=== PATIENT | female | born 1940 | race Caucasian/White ===

== ENCOUNTER → 2022-04-20 | Outpatient (CLI) | payer MEDICARE | LOC: KOH-I 08:00 | DX: M54.50 Low back pain, unspecified (principal); M54.6 Pain in thoracic spine; M43.8X4 Other specified deforming dorsopathies, thoracic region; M47.816 Spondylosis without myelopathy or radiculopathy, lumbar region | CPT/HCPCS: 72070; 72100 ==

== ENCOUNTER → 2022-04-27 | Outpatient (CLI) | payer MEDICARE | LOC: KOH-I 11:13 | DX: R10.9 Unspecified abdominal pain (principal) | CPT/HCPCS: 76856 ==

== ENCOUNTER → 2022-05-15 | Outpatient (CLI) | payer MEDICARE | LOC: KOH-I 11:00 | DX: R10.9 Unspecified abdominal pain (principal); N28.1 Cyst of kidney, acquired; N27.0 Small kidney, unilateral | CPT/HCPCS: 76700 ==

== ENCOUNTER → 2022-05-25 | Outpatient (CLI) | payer MEDICARE | LOC: KOH-I 05-23 10:00 | DX: S22.080A Wedge compression fracture of T11-T12 vertebra, initial encounter for closed fracture (principal); D32.9 Benign neoplasm of meninges, unspecified; M47.814 Spondylosis without myelopathy or radiculopathy, thoracic region; M51.34 Other intervertebral disc degeneration, thoracic region; Q05.9 Spina bifida, unspecified; R90.82 White matter disease, unspecified | CPT/HCPCS: 70551; 72146 ==